=== PATIENT | female | born 1960 | race Caucasian/White ===

== ENCOUNTER 2019-03-21 15:04 | Outpatient (CLI) | payer BC ==
--- NOTE | 2019-03-21 15:33 | RAD ---
THREE VIEWS LEFT HAND: 03/21/19 COMPARISON: None. HISTORY: Left finger pain and swelling in the pinkie finger. FINDINGS: Three views of the left hand shows no evidence of acute fracture or dislocation. Soft tissue swelling is seen surrounding the PIP joint of the finger. Mild joint space narrowing is seen in the interphal angeal joints of the fingers consistent with osteoarthritis. IMPRESSION: 1. No evidence of acute osseous abnormality. 2. Mild left hand osteoarthritis. POS: CET
--- NOTE | 2019-03-21 15:35 | RAD ---
THREE VIEWS OF THE LEFT SMALL FINGER: 03/21/19 COMPARISON: None. HISTORY: Finger pain and swelling for a few weeks. FINDINGS: Three views of the left small finger shows no evidence of acute fracture or dislocation. There is lilliana nt space narrowing and osteophyte formation involving the interphalangeal joints of the fingers consi stent with mild osteoarthritis. IMPRESSION: Mild osteoarthritis without acute osseous abnormality. POS: CET
== END 2019-03-21 15:05 | disposition home or self-care (01) ==
LOC: SCSRAD 15:04
PROVIDERS: ATTEND Family Medicine
DX: M79.642 Pain in left hand (principal); M79.645 Pain in left finger(s); M19.042 Primary osteoarthritis, left hand